=== PATIENT | male | born 1950 | race Two or more races ===

== ENCOUNTER 2020-06-13 20:57 | Emergency (ER) | payer OTHER ==
[~2020-06-13] VITALS: Ht 172.7 cm; Wt 86.2 kg
== END 2020-06-14 03:23 | disposition left against medical advice (07) ==
LOC: ER 20:57
DX: R10.84 Generalized abdominal pain (principal)

== ENCOUNTER 2020-06-19 07:49 | Outpatient (CLI) | payer OTHER | END 2020-06-19 08:03 | disposition home or self-care (01) | LOC: TOM 07:49 | DX: R22.1 Localized swelling, mass and lump, neck (principal); R04.2 Hemoptysis | CPT/HCPCS: 70491; 71260; Q9965 ==

== ENCOUNTER → 2020-06-23 07:58 | Outpatient (CLI) | payer OTHER | END | disposition home or self-care (01) | LOC: LAB 07:58 | PROVIDERS: ATTEND Radiology Diagnostic Radiology | DX: N20.0 Calculus of kidney (principal) ==

== ENCOUNTER 2020-07-02 15:16 | Emergency (ER) | payer OTHER ==
[~2020-07-02] VITALS: Ht 175.3 cm; Wt 73.9 kg
== END 2020-07-03 08:10 | disposition left against medical advice (07) ==
LOC: ER 15:16
DX: R10.84 Generalized abdominal pain (principal); R06.02 Shortness of breath; C34.90 Malignant neoplasm of unspecified part of unspecified bronchus or lung; C78.7 Secondary malignant neoplasm of liver and intrahepatic bile duct; F17.200 Nicotine dependence, unspecified, uncomplicated

== ENCOUNTER 2020-07-03 15:38 | Inpatient (IN) | payer OTHER ==
[~2020-07-03] VITALS: Ht 182.9 cm; Wt 79.4 kg
== END 2020-07-05 16:13 | disposition expired | DRG 208 ==
LOC: ER 15:38 → ICU-2 21:07
PROVIDERS: ADMIT Internal Medicine; ATTEND Internal Medicine
PROC: 5A1945Z Respiratory Ventilation, 24-96 Consecutive Hours (ICD-10-PCS; principal; 2020-07-04)
PROC: 0BH17EZ Insertion of Endotracheal Airway into Trachea, Via Natural or Artificial Opening (ICD-10-PCS; 2020-07-04)
PROC: 4A033R1 Measurement of Arterial Saturation, Peripheral, Percutaneous Approach (ICD-10-PCS; 2020-07-04)
PROC: 3E0F7GC Introduction of Other Therapeutic Substance into Respiratory Tract, Via Natural or Artificial Opening (ICD-10-PCS; 2020-07-04)
PROC: 0T9B70Z Drainage of Bladder with Drainage Device, Via Natural or Artificial Opening (ICD-10-PCS; 2020-07-04)
PROC: 0DH67UZ Insertion of Feeding Device into Stomach, Via Natural or Artificial Opening (ICD-10-PCS; 2020-07-05)
DX: J96.00 Acute respiratory failure, unspecified whether with hypoxia or hypercapnia (principal); A41.9 Sepsis, unspecified organism; K76.7 Hepatorenal syndrome; E87.2 Acidosis; N17.9 Acute kidney failure, unspecified; M62.82 Rhabdomyolysis; R18.8 Other ascites; C75.9 Malignant neoplasm of endocrine gland, unspecified; C78.7 Secondary malignant neoplasm of liver and intrahepatic bile duct; C78.00 Secondary malignant neoplasm of unspecified lung; R41.0 Disorientation, unspecified; N20.0 Calculus of kidney; K57.90 Diverticulosis of intestine, part unspecified, without perforation or abscess without bleeding; F17.200 Nicotine dependence, unspecified, uncomplicated; E86.0 Dehydration; Z20.828 Contact with and (suspected) exposure to other viral communicable diseases